=== PATIENT | male | born 1985 | race African-American/Black ===

== ENCOUNTER 2017-11-30 12:11 | Emergency (ER) | payer OTHER ==
[2017-11-30] MEDS ORDERED: ACETAMINOPHEN 325 MG TABLET PO ONE (12:51)
[2017-11-30] MEDS ORDERED: KETOROLAC TROMETHAMINE INJ/PF 30 MG/1 ML SDV IM ONE (12:51)
--- NOTE | 2017-11-30 12:53 | ER Document Report ---
ED General - General Chief Complaint: Flu Symptoms Stated Complaint: COUGH,CONGESTION,ABDOMINAL PAIN Time Seen by Provider: 11/30/17 12:19 Mode of Arrival: Ambulatory Information source: Patient TRAVEL OUTSIDE OF THE [place] IN LAST 30 DAYS: No - HPI Patient complains to provider of: flu like symptoms Onset: Other - 2 days Notes: Patient is here with complaints of cough, fever, body ache, sore throat, sneezing for the last 2 days. States that his daughter was swabbed and diagnosed with influenza 3 days ago and he woke up 2 days ago with the same symptoms. He is a prior history of asthma. He denies any nausea, vomiting, diarrhea. No abdominal pain. He complains of occasional chest pain when he coughs, no shortness of breath. No blurred or loss vision. No numbness, tingling, weakness. No rash. No difficulty breathing or swallowing. Nothing has made his symptoms better or worse. He denies any other complaints at this time. Past Medical History - Social History Smoking Status: Unknown if Ever Smoked Family History: Reviewed & Not Pertinent Review of Systems - Review of Systems -: Yes All other systems reviewed and negative Physical Exam - Vital signs Vitals: Temp Pulse Resp BP Pulse Ox 102.8 F H 94 20 132/79 H 96 11/30/17 12:18 11/30/17 12:18 11/30/17 12:18 11/30/17 12:18 11/30/17 12:18 - Notes Notes: GENERAL: alert, cooperative, nontoxic, no distress. HEAD: normocephalic, atraumatic EYES: conjunctiva pink without discharge, no external redness or swelling. EARS: no external swelling, no external redness, no mastoid redness, swelling, tenderness. Ear canals are clear without swelling or drainage. TMs pearly kong , no redness, no bulging, normal landmarks, no perforation. NOSE: atraumatic, no external swelling. clear rhinorrhea noted. MOUTH/THROAT: mucous membranes moist and pink, posterior pharynx without erythema, swelling, exudate. No trismus or drooling. NECK: soft, supple, full range of motion, no meningismus. CHEST: no distress, lungs clear and equal throughout. No wheezing, rales, rhonchi. CARDIAC: regular rate and rhythm, no murmur, normal capillary refill, normal pulses. No peripheral edema noted. BACK: full range of motion, no CVA tenderness. EXTREMITIES: full range of motion of all extremities. No redness, no swelling. NEURO: alert and oriented A&O3, no focal deficits, full range of motion of all extremities. PYSCH: appropriate mood, affect. Patient is cooperative. SKIN: pink, warm, dry, no rash. Course - Re-evaluation Re-evalutation: 11/30/17 14:43 Here with flulike symptoms for the last 2 days. His daughter was swabbed and but diagnosed with influenza 3 days ago. His initial set of vitals showed a fever of 102.8 minimally tachycardic just above 100. The patient does not appear to have patient is nontoxic appearing with stable vitals. The patient's had flulike symptoms for the last 2 days. His daughter was swabbed and diagnosed with influenza 3 days ago. On his initial set of vital signs, the patient is noted to be slightly tachycardic and febrile. He does not appear to be septic. I offered blood work, but the patient declined at this time. Chest x-ray shows no acute abnormality. Rapid strep is negative. We do not have rapid flu swabs available at this time. Due to the fact that his daughter was positive and he has been symptomatic for the last 48 hours I have offered him Tamiflu. He has accepted this prescription. I went over the risks and benefits of the medication. He will be discharged home with Tamiflu, Voltaren, Tessalon. Work note. Follow-up if not better in the next 5 days, sooner for worsening symptoms, difficulty breathing, or for any further concerns. The patient is noted to have elevated blood pressure during today's emergency department visit. The patient was informed of this finding. The patient was instructed that this may be related to pre-hypertension and requires further evaluation with a primary care provider. The patient has no hypertensive symptoms at this time. The patient's emergency department workup and current diagnosis were explained to the patient and or family. Follow-up instructions were provided. Medications if prescribed were discussed. Instructions for when to return to the emergency department including specific worrisome symptoms were discussed with the patient and/or family. - Vital Signs Vital signs: Temp Pulse Resp BP Pulse Ox 102.8 F H 94 20 132/79 H 96 11/30/17 12:18 11/30/17 12:18 11/30/17 12:18 11/30/17 12:18 11/30/17 12:18 - Diagnostic Test Radiology reviewed: Image reviewed, Reports reviewed - Negative chest x-ray Discharge - Discharge Clinical Impression: Influenza Condition: Stable Disposition: HOME, SELF-CARE Instructions: Influenza ([facility]) [id number] Additional Instructions: Take medications as prescribed. Rest. Drink plenty of fluids. He should not return to work until you have had no fever for 24 hours without taking Tylenol or Motrin. Follow-up sooner for increasing pain, difficulty breathing, difficulty swallowing, persistent vomiting, or for any further concerns. Your blood pressure was elevated during today's visit. Have this rechecked with your doctor. Prescriptions: Benzonatate [Tessalon Perle 100 mg Capsule] 100 mg PO Q8HP PRN #20 cap PRN Reason: Diclofenac Sodium [Voltaren 50 Mg Tablet.Dr] 50 mg PO BID #20 tablet.dr Forms: Elevated Blood Pressure, Smoking Cessation Education, Return to Work
--- NOTE | 2017-11-30 13:59 | RADIOLOGY REPORT (SQ) ---
EXAM DESCRIPTION: CHEST PA/LAT COMPLETED DATE/TIME: 11/30/2017 1:27 pm REASON FOR STUDY: fever, cough COMPARISON: None. EXAM PARAMETERS: NUMBER OF VIEWS: two views TECHNIQUE: Digital Frontal and Lateral radiographic views of the chest acquired. RADIATION DOSE: NA LIMITATIONS: none FINDINGS: LUNGS AND PLEURA: No opacities, masses or pneumothorax. No pleural effusion. MEDIASTINUM AND HILAR STRUCTURES: No masses or contour abnormalities. HEART AND VASCULAR STRUCTURES: Heart normal size. No evidence for failure. BONES: No acute findings. HARDWARE: None in the chest. OTHER: No other significant finding. IMPRESSION: NO SIGNIFICANT RADIOGRAPHIC FINDING IN THE CHEST. TECHNICAL DOCUMENTATION: JOB ID: [id number] [employer]- All Rights Reserved Reading location - IP/workstation name: [email or web address]
[2017-11-30 14:55] VITALS: BP 110/63
== END 2017-11-30 14:55 | disposition home or self-care (01) ==
LOC: ER 12:11
DX: J11.1 Influenza due to unidentified influenza virus with other respiratory manifestations (principal); J45.909 Unspecified asthma, uncomplicated; R05 Cough; R50.9 Fever, unspecified; R06.7 Sneezing; R03.0 Elevated blood-pressure reading, without diagnosis of hypertension
CPT/HCPCS: 99283; 96372; 87070; 87880; 71046; J1885